=== PATIENT | female | born 1985 | race Caucasian/White ===

== ENCOUNTER 2019-04-07 11:55 | Day surgery (SDC) | payer BC, OTHER ==
[2019-04-07] MEDS ORDERED: DOXYCYCLINE HYCLATE 100 MG CAP/TAB PO ONE ×2 (12:07)
[2019-04-07] MEDS ORDERED: LR 1,000 ML IV ONE (12:07)
--- NOTE | 2019-04-07 12:17 | GHP ---
[f rep st] HISTORY AND PHYSICAL DATE OF ADMISSION: 04/07/2019 ADMITTING DIAGNOSIS: Blighted ovum, incomplete AB at 8 weeks. HISTORY OF PRESENT ILLNESS: Patient is a 33-year-old, 1, para 0 with last menstrual period 01/18/2019 at 10 weeks 1 day by dates, who presented for a new OB visit in my office last week. Ultrasound revealed a single IUP at 8 weeks 3 days, measuring size less than dates by 12 days with no yolk sac, flattened gestational sac, and no embryo seen, consistent with likely a blighted ovum. The patient at that time denied any leakage of fluid or any vaginal bleeding. She denied any pain or cramping. She states her menstrual cycles are regular every 28 to 30 days x5 days. The patient endorsed symptoms, and noted breast tenderness and nausea. Condolences were given to the patient and her partner, Jose. We discussed treatment options, including conservative management with observation versus medical management with Cytotec versus surgical management with D and C. The patient wants to observe for now. Miscarriage precautions were given. About a week later, the patient noted some light to moderate bleeding with no clots for about 2-3 days with minimal cramping. The patient denies any fevers or chills at this time. Followup ultrasound today shows a thickened endometrium at 3.3 cm with cystic structures and flow, consistent with probable retained products of . The patient is Rh positive. At this point, she wants to proceed with a suction D and C, which was already scheduled for later today. Patient has been n.p.o. by mouth after midnight but did have Gatorade at 9 o'clock this morning per [facility]. PAST OB HISTORY: This is the patient's first . 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 Cycles are regular every 28 to 30 days x5 days. LMP: 01/18/2019. Patient denies a history of abnormal pap smears or any exposure to STDs. CURRENT MEDICATIONS: vitamins. ALLERGIES: Penicillin, anaphylactic shock. PAST MEDICAL HISTORY: Exercise-induced asthma. PAST SURGICAL HISTORY: Tonsillectomy, 2002. FAMILY HISTORY: Brother with drug addiction. Paternal grandmother, myocardial infarction. SOCIAL HISTORY: Patient is and lives with her , Jose. 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 She currently denies any alcohol, tobacco or illicit drug use. PHYSICAL EXAMINATION: VITAL SIGNS: Stable. Patient is afebrile, 98.7, pulse 65, respirations 18, blood pressure 112/68. GENERAL: The patient is a well- nourished, well-developed female. Alert and oriented x3. No apparent distress. NEURO: Grossly intact. SKIN: Warm, dry without rash. CARDIOVASCULAR: Regular rate and rhythm. LUNGS: Clear to auscultation bilaterally. ABDOMEN: Soft, nontender, nondistended. PELVIC: Exam is deferred. EXTREMITIES: Normal to inspection without calf tenderness or edema. ASSESSMENT/PLAN: Patient is a 33-year-old, G1, P0 with a blighted ovum, incomplete AB at 8 weeks. 1. Reviewed the procedure, suction D and C under ultrasound guidance, its limitations, n.p.o. status, ERAS, and postop recovery. 2. Discussed risks, benefits, and alternatives with the patient including but not limited to, bleeding, infection, risk of uterine perforation with damage to surrounding organs, and also risk of uterine scarring, and fertility problems. The patient understands all risks at this time and wants to proceed with surgery. The patient was properly consented. 3. The patient is Rh positive. No RhoGAM needed. 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 5. SCDs for deep vein thrombosis prophylaxis. /[id number]/MODL MTDD
[2019-04-07] MEDS ORDERED: TERBUTALINE SULFATE 1 MG/ML VIAL ONE (12:30)
[2019-04-07] MEDS ORDERED: MISOPROSTOL 200 MCG TAB ONE (12:30)
[2019-04-07] MEDS ORDERED: OXYTOCIN 10 UNIT/ML VIAL ONE (12:30)
[2019-04-07] MEDS ORDERED: AMMONIA AROMATIC 1 EACH AMP IH ONE (12:30)
--- NOTE | 2019-04-07 12:42 | PDHPUP ---
History & Physical Update H&P update statement: This history and physical update is based on an assessment of the patient which was completed after admission or registration (within 24 hours), but prior to the surgery/procedure. H&P update: H&P reviewed & patient examined, no change in patient's condition since H&P completed
[2019-04-07] MEDS ORDERED: PROPOFOL 200 MG/20 ML VIAL ONE (12:55)
[2019-04-07] MEDS ORDERED: fentaNYL 100 MCG/2 ML INJ ONE (12:56)
[2019-04-07] MEDS ORDERED: LIDOCAINE 2% 2 ML INJ ONE (12:57)
--- NOTE | 2019-04-07 12:57 | PDANEPAE ---
ANE History of Present Illness missed AB ANE Past Medical History - Cardiovascular History Hx Hypertension: No Hx Arrhythmias: No Hx Chest Pain: No Hx Coronary Artery / Peripheral Vascular Disease: No Hx CHF / Valvular Disease: No Hx Palpitations: No - Pulmonary History Hx COPD: No Hx Asthma/Reactive Airway Disease: Yes Hx Recent Upper Respiratory Infection: No Hx Oxygen in Use at Home: No Hx Sleep Apnea: No - Endocrine History Hx Diabetes: No Hypothyroid: No Hyperthyroid: No Obesity: no - Chronic Pain History Chronic Pain: No - Surgical History Prior Surgeries: tonsils ANE Review of Systems Review of systems is: negative Review of Systems: - Exercise capacity Exercise capacity: >=4 METS ANE Patient History - Allergies Allergies/Adverse Reactions: Penicillins Allergy (Severe, Verified 04/07/19 11:39) - Home Medications Home medications: home medication list seen and reviewed - NPO status NPO Status: no food or drink >8 hours NPO Since - Liquids (Date): 04/07/19 NPO Since - Liquids (Time): 08:30 NPO Since - Solids (Date): 04/06/19 NPO Since - Solids (Time): 19:30 - Anes Hx Anes Hx: no prior problems - Smoking Hx Smoking Status: Never smoked - Family Anes Hx Family Anes Hx: none ANE Labs/Vital Signs - Vital Signs Blood Pressure: 132/100 Heart Rate: 80 Respiratory Rate: 16 O2 Sat (%): 93 Height: 165.1 cm Weight: 77.111 kg ANE Physical Exam - Airway Neck exam: FROM Mallampati Score: Class 2 Mouth exam: normal dental/mouth exam - Pulmonary Pulmonary: no respiratory distress, clear to auscultation - Cardiovascular Cardiovascular: regular rate and rhythym, no murmur, rub, or gallop - ASA Status ASA Status: II ANE Anesthesia Plan Anesthesia Plan: GA w LMA
[2019-04-07] MEDS ORDERED: MIDAZOLAM 2 MG/2 ML VIAL ONE (13:03)
[2019-04-07] MEDS ORDERED: DEXAMETHASONE 4 MG/ML VIAL ONE (13:20)
[2019-04-07] MEDS ORDERED: ONDANSETRON 4 MG/2 ML VIAL ONE (13:20)
[2019-04-07] MEDS ORDERED: fentaNYL 100 MCG/2 ML INJ IVP PRN (13:30)
[2019-04-07] MEDS ORDERED: PHENYLEPHRINE HCL 100 MCG/ML SYR IVP PRN (13:30)
[2019-04-07] MEDS ORDERED: NALOXONE HCL 0.4 MG/ML INJ IVP PRN (13:30)
[2019-04-07] MEDS ORDERED: MEPERIDINE 25 MG/0.5 ML AMP IVP PRN (13:30)
[2019-04-07] MEDS ORDERED: METOCLOPRAMIDE 10 MG/2 ML VIAL IVP PRN (13:30)
[2019-04-07] MEDS ORDERED: ONDANSETRON 4 MG/2 ML VIAL IVP PRN (13:30)
--- NOTE | 2019-04-07 13:30 | POSTANESTH ---
Post Anesthetic Evaluation Cardiovascular Status: Normal, Stable Respiratory Status: Normal, Stable Level of Consciousness/Mental Status: Can Participate in Eval Pain Control: Adequate, Prn Tx Ordered Nausea/Vomiting Control: Adequate, Prn Tx Ordered Complications Possibly Related to Anesthesia: None Noted
[2019-04-07] MEDS ORDERED: KETOROLAC 30 MG/1 ML SDV ONE (13:38)
--- NOTE | 2019-04-07 13:48 | POSTOPPROG ---
Post Op Note Date of Operation: 04/07/19 Surgeon: Mamie Hood [employer] Supervisor: None Anesthesiologist: Carolyn Bowers Anesthesia: Other (Specify) (MAC) Pre-op Diagnosis: Blighted ovum, Incomplete Ab at 8 weeks Post-op Diagnosis: Blighted ovum, Incomplete Ab at 8 weeks Indication: 33 y/o @ 10 1/7 wks by LMP 01/18/19 w/ blighted ovum @ 8 3/7 wks ; Rh+ Procedure: Suction D&C under u/s guidance Findings: No active VB; os open; ut sounded to 9-10 cm; mod amt POCs; min bleeding Inf/Abcess present in the surg proc area at time of surgery?: No Depth: Organ Space EBL: 50-100 (50cc) Total fluids administered: 350cc LR Pt emptied bladder prior to OR Complications: None Bowel Protocol: N/A Clean Closure Performed: N/A Specimen(s): POCs
[2019-04-07 15:32] VITALS: BP 138/98
--- NOTE | 2019-04-07 18:03 | GOP ---
[f rep st] OPERATIVE REPORT DATE OF OPERATION: 04/07/2019 SURGEON: Mamie Hood DO LAW REPORTER: None. ANESTHESIA: MAC. ANESTHESIOLOGIST: Carolyn Bowers MD. PREOPERATIVE DIAGNOSIS: Blighted ovum, incomplete at 8 weeks. POSTOPERATIVE DIAGNOSIS: Blighted ovum, incomplete at 8 weeks. PROCEDURE PERFORMED: Suction dilation and curettage under ultrasound guidance. FINDINGS: No active bleeding noted. Cervix was already open and dilated to 1 cm. Uterus was sounded to 9-10 cm. A curved 8 mm suction curette was used. A moderate amount of products of conception were noted. The patient is Rh positive. There was minimal bleeding noted at the end of procedure. SPECIMENS: Products of conception. INDICATIONS: Patient is a 33-year-old G1, P0 at 10 weeks 1 day by LMP 2018, who presented for her initial OB visit without any complaints. An ultrasound showed a blighted ovum at 8 weeks 3/7 days, size less than dates by 12 days, with no embryo, no yolk sac, flattened gestational sac, consistent with a blighted ovum. The patient wanted to observe at that time. About a week later, she started having moderate vaginal bleeding, no clots, and minimal cramping. She then presented for a followup ultrasound that showed a thickened heterogeneous lining at 3.3 cm, likely retained products of conception. The patient wants to proceed with a D and C at this time. Discussed risks, benefits , and alternatives of the procedure including but not limited to, bleeding, infection, risk of uterine perforation with damage to surrounding organs, as well as risk of uterine scarring with fertility problems. The patient understands all risks of this procedure and wants to proceed. Patient was properly consented. DESCRIPTION OF PROCEDURE: The patient was taken back to the operating room where anesthesia was obtained without difficulty. The patient was placed in dorsal lithotomy position on the operating table and prepped and draped in the usual sterile fashion. After the WHO time-out was performed, an open-ended speculum was placed in the patient's vagina. The patient was then placed in Trendelenburg. The anterior lip of the cervix was grasped with a single-tooth tenaculum. The cervix was already noted to be dilated. The uterus was then gently sounded 9-10 cm. A curved 8 mm suction curette was then introduced and suction curette was performed multiple times under ultrasound guidance. Once all products of conception were evacuated, a sharp curettage was performed. This was performed until a gritty surface was appreciated in all 4 quadrants of the uterus with minimal tissue obtained. There was minimal bleeding noted at this time. Suction curette was passed one more time to remove any further remaining products of conception. At this time, a thin endometrial stripe was noted on ultrasound and there were no other areas of suspicion for retained products. All instruments then removed from the vagina, hemostasis was noted. The patient tolerated the procedure well. There were no complications. Sponge , lap, and instrument counts correct x2. The patient was then taken out of dorsal lithotomy position, awakened, taken to recovery room in stable condition. The patient was given 100 mg of doxycycline prior to start of the case and will receive another 100 mg in the PACU. /[id number]/MODL MTDD
== END 2019-04-07 15:45 | disposition home or self-care (01) ==
LOC: FOBOP 11:55 → FLD 11:55 → FOBOP 15:45
PROVIDERS: ATTEND Obstetrics & Gynecology
PROC: 10D17ZZ Extraction of Products of Conception, Retained, Via Natural or Artificial Opening (ICD-10-PCS; principal; 2019-04-07)
DX: O03.4 Incomplete spontaneous abortion without complication (principal); Z3A.08 8 weeks gestation of pregnancy
CPT/HCPCS: J1100; J1885; J2250; J2405; J2590; J2704; J3010; J3105